=== PATIENT | female | born 1965 | race Two or more races ===

== ENCOUNTER 2022-10-04 08:26 | Outpatient (CLI) | payer OTHER | END 2022-10-04 08:31 | disposition home or self-care (01) | LOC: SONOGRAMA 08:26 | PROVIDERS: ATTEND Pathology Anatomic Pathology & Clinical Pathology | DX: D44.0 Neoplasm of uncertain behavior of thyroid gland (principal); E07.9 Disorder of thyroid, unspecified; E03.8 Other specified hypothyroidism ==